=== PATIENT | male | born 1970 | race Caucasian/White ===

== ENCOUNTER 2021-01-17 05:40 | Emergency (ER) | payer BC, SELFPAY ==
[2021-01-17 06:03] VITALS: BP 122/77; PULSE 82; RESP 18; TEMP 36.9; O2SAT 96; BMI 25.2
--- NOTE | 2021-01-17 06:41 | ED.GENADULT ---
HPI - General Adult General Chief complaint: General Medical Stated complaint: swollen mouth Time Seen by Provider: 01/17/21 06:35 Source: patient Mode of arrival: ambulatory Limitations: no limitations History of Present Illness complaint: bump in throat Onset (ago): hour(s) (couple) Location: mouth Radiation: non-radiation Severity: mild Quality: aching Pain Consistency: intermittent Relieving factors: none Exacerbating factors: other (swallowing) Associated symptoms: denies other symptoms Treatments prior to arrival: other (did try to grab his uvula) Related Data Previous Rx's Medication Instructions Recorded amoxicillin 875 mg-potassium 1 tab PO BID #14 tab 01/17/21 clavulanate 125 mg tablet (Augmentin) Allergies Allergy/AdvReac Type Severity Reaction Status Date / Time bee pollen [bee stings] AdvReac Anaphylaxis Verified 01/17/21 06:13 codeine AdvReac Vomiting Verified 01/17/21 06:13 Review of Systems Review of Systems: Constitutional : no Fever, no Chills, no fatigue, no Malaise ENT/Mouth : positive sore throat, no runny nose Eyes: No Discharge Cardiovascular : No Chest Pain, No SOB Respiratory : No Cough, No Sputum Gastrointestinal : No Nausea, No Vomiting, No Diarrhea Genitourinary : No Dysuria, No Urinary Frequency Musculoskeletal : no Myalgia Skin : No rash Neuro : No Headache PMFSH Past Medical History Medical History Afib Cardiomyopathy ICD (implantable cardioverter-defibrillator) in place Surgical History (Updated 01/17/21 @ 06:11 by Ashlie Brambila) Stented coronary artery Social History Social History (Updated 01/17/21 @ 06:42 by Amanda Tyler DO) Patient Tobacco Use Status: Never used Tobacco Advance Directives: No Advance Directives Information Provided: Yes Physical Exam Vital Signs: Vital Signs: Last Vital Signs Temp 98.4 F 01/17/21 06:03 Pulse 82 01/17/21 06:03 Resp 18 01/17/21 06:03 BP 122/77 01/17/21 06:03 Pulse Ox 96 01/17/21 06:03 Body Mass Index 25.2 Appearance: Alert. Oriented X3. No acute distress. Eyes: Pupils equal, round and reactive to light. ENT: Uvula is swollen with fluid sac at the base mild erythema has scant abrasions noted from grabbing the uvula no patches noted Neck: Normal inspection. Neck supple. no stridor CVS: Normal heart rate and rhythm. Pulses normal. Respiratory: No respiratory distress. Breath sounds normal. Abdomen: Soft and non-tender. Skin: Skin warm and dry. Normal skin color. Normal skin turgor. Extremities: No lower extremity edema. Neuro: Oriented X 3. No motor deficit. No sensory deficit. Medical Decision Making MDM Narrative Medical decision making narrative: 89 yo male with hx of ICD afib cardiomyopathy here with c/o waking up to swollen painful bump in throat he has uvulitis he did attempt to grab it - at this time the swelling has decreased no airway obstruction will give augmentin and dexamethasone Discharge Plan Discharge Clinical Impression: Uvulitis Patient Disposition: Home, Self-Care Instructions: Uvulitis (ED) Additional Instructions: return to ED for any worsening symptoms or concerns drink cold liquids that will help steroids will last a few days Prescriptions: New amoxicillin-pot clavulanate [Augmentin] 875-125 mg tablet 1 tab PO BID Qty: 14 RF: 0 Stand Alone Forms: Work/School Release
[2021-01-17] MEDS: Amoxicillin/Potassium Clav 875 MG TABLET PO (06:51)
[2021-01-17] MEDS: dexAMETHasone sod phosphate 4 MG/ML VIAL 8 MG IVPUSH (06:51)
== END 2021-01-17 07:14 | disposition home or self-care (01) ==
PROVIDERS: Emergency Provider Emergency Medicine
DX: K12.2 Cellulitis and abscess of mouth (principal); I48.91 Unspecified atrial fibrillation; Z95.810 Presence of automatic (implantable) cardiac defibrillator
CPT/HCPCS: 96374; 99283; 99284; J1100